=== PATIENT | female | born 1940 | race Caucasian/White ===

== ENCOUNTER 2017-11-09 19:26 | Emergency (ER) | payer OTHER ==
[~2017-11-09] VITALS: Ht 160 cm; Wt 68.0 kg
[~2017-11-09 19:26] MED LIST: ALBU90OI INH; BECL80OI INH; LEVSOD75 PO
[2017-11-09] MEDS ORDERED: (None)20 M1 PO (21:07)
== END 2017-11-09 21:14 | disposition home or self-care (01) ==
LOC: ER 19:26
DX: J45.901 Unspecified asthma with (acute) exacerbation (principal); Z88.2 Allergy status to sulfonamides; Z79.899 Other long term (current) drug therapy
CPT/HCPCS: 36415; 94644; 96374; 99283; J2930